=== PATIENT | female | born 1965 | race African-American/Black ===

== ENCOUNTER 2021-03-11 20:08 | Emergency (ER) | payer SELFPAY ==
[~2021-03-11] VITALS: Ht 165.1 cm; Wt 113.4 kg
[2021-03-11] MEDS ORDERED: diphenhydrAMINE HCL 50 MG/ML VIAL IV ONE (20:30)
[2021-03-11] MEDS ORDERED: IV NS 0.9% 1,000 ML BAG IV ONE (20:30)
[2021-03-11] MEDS ORDERED: methylPREDNISolone SOD SUCC 125 MG/2ML VIAL IV ONE (20:30)
[2021-03-11] MEDS ORDERED: IPRATROPIUM NEB FS 0.5 MG/2.5 ML AMPUL.NEB NEB ONE (20:30)
[2021-03-11] MEDS ORDERED: ALBUTEROL FS 2.5 MG/3 ML VIAL.NEB NEB ONE (20:30)
--- NOTE | 2021-03-11 20:32 | NUR ---
CALLED RT REGARIND BREATHING TREATMENT.
--- NOTE | 2021-03-11 20:32 | NUR ---
PT BIBSELF C/O ALLERGIC RXN S/P BEING EXPOSED TO SON'S CAT. PT AAOX4 BREATHING EVENLY AND UNLABORED, BUT AUDIBLE WHEEZING ARE NOTED. PT ATTACHED TO MONITOR AND POX. RAC 20G INITIATED, BLOOD SENT TO LAB. PT GIVEN BLANKET AND CALL LIGHT WITHIN REACH. JUAN DAVID SHEEHAN AT BEDSIDE
[2021-03-11] MEDS ORDERED: methylPREDNISolone SOD SUCC 125 MG/2ML VIAL ONE (20:33)
[2021-03-11] MEDS ORDERED: diphenhydrAMINE HCL 50 MG/ML VIAL ONE (20:33)
--- NOTE | 2021-03-11 20:40 | NUR ---
XRAY AT BEDSIDE
--- NOTE | 2021-03-11 20:46 | NUR ---
COVID SWAB SENT TO LAB
[2021-03-11] MEDS ORDERED: IOHEXOL-350 100 ML VIAL IV ONE (21:07)
[2021-03-11] MEDS ORDERED: IV NS 0.9% 250 ML IV ONE (21:07)
[2021-03-11] MEDS ORDERED: CT SWABBABLE VALVE TRANS SET 1 EA INFUS.SET MC ONE (21:07)
[2021-03-11 21:22] LABS: BASOPHILS % (AUTO) 0.3 % (0.0-2.0); EOSINOPHILS % (AUTO) 4.5 % (0.0-6.0); HEMATOCRIT 42 % (33-45); HEMOGLOBIN 14.2 g/dL (11.5-14.8); LYMPHOCYTES # (AUTO) 2.5 K/uL (0.8-4.8); LYMPHOCYTES % (AUTO) 29.8 % (20.0-44.0); MEAN CORPUSCULAR HGB CONC 34 g/dl (31.0-36.0); MEAN CORPUSCULAR VOLUME 80 fL (82-100); MONOCYTES # (AUTO) 0.6 K/uL (0.1-1.30); MONOCYTES % (AUTO) 6.7 % (2.0-12.0); NEUTROPHILS % (AUTO) 58.7 % (43.0-81.0); PLATELET COUNT (AUTO) 353 K/uL (150-450); RED BLOOD CELL COUNT(AUTO) 5.24 MIL/uL (4.0-5.2); WHITE BLOOD COUNT (AUTO) 8.5 K/uL (4.3-11.0)
[2021-03-11 21:41] LABS: CARBON DIOXIDE 30 mmol/L (21-32); CHLORIDE 102 mmol/L (98-107); CREATININE 1.1 mg/dL (0.6-1.3); GLUCOSE 90 mg/dL (74-106); POTASSIUM 3.5 mmol/L (3.5-5.1); SODIUM SERUM 141 mmol/L (136-145); UREA NITROGEN, BLOOD 12 mg/dL (7-18)
[2021-03-11] MEDS ORDERED: IPRATROPIUM NEB FS 0.5 MG/2.5 ML AMPUL.NEB ONE (21:41)
[2021-03-11] MEDS ORDERED: ALBUTEROL FS 2.5 MG/3 ML VIAL.NEB ONE (21:41)
[2021-03-11 21:47] LABS: ALANINE AMINOTRANSFERASE 25 U/L (12-78); ALBUMIN 3.7 g/dL (3.4-5.0); ALKALINE PHOSPHATASE 97 U/L (46-116); ASPARTATE AMINOTRANSFERASE 17 U/L (15-37); BILIRUBIN,DIRECT 0.1 mg/dL (0.0-0.2); BILIRUBIN,TOTAL 0.2 mg/dL (0.2-1.0); TOTAL PROTEIN, SERUM 8.6 g/dL (6.4-8.2)
[2021-03-11] MEDS ORDERED: ALBU18HF2 INH (22:44)
[2021-03-11] MEDS ORDERED: PRED20TA PO (22:44)
[2021-03-11 23:03] VITALS: BP 142/69
--- NOTE | 2021-03-11 23:03 | NUR ---
Patient discharged to home in stable condition. Written and verbal after care instructions given. Patient verbalizes understanding of instruction.IV removed. Catheter intact and site benign. Pressure and 4x4 applied to site. No bleeding noted. Pt ambulatory with a steady gait
== END 2021-03-11 23:03 | disposition home or self-care (01) ==
LOC: ER 20:12
DX: T78.49XA Other allergy, initial encounter (principal); J30.81 Allergic rhinitis due to animal (cat) (dog) hair and dander; X58.XXXA Exposure to other specified factors, initial encounter; R06.03 Acute respiratory distress; Z72.0 Tobacco use; R94.31 Abnormal electrocardiogram [ECG] [EKG]; R91.1 Solitary pulmonary nodule; E66.01 Morbid (severe) obesity due to excess calories; Z68.41 Body mass index [BMI] 40.0-44.9, adult; Z20.822 Contact with and (suspected) exposure to COVID-19; Z88.0 Allergy status to penicillin; R09.02 Hypoxemia; Z87.01 Personal history of pneumonia (recurrent)
CPT/HCPCS: 36415; 71045; 71275; 80048; 80076; 84484; 85025; 87426; 93005; 94640 ×2; 96361; 96374; 99285; C9803; J2930; J7030; J7050; Q9967; J1200